=== PATIENT | female | born 1995 | race Caucasian/White ===

== ENCOUNTER → 2019-03-06 | Day surgery (SDC) | payer BC ==
[~2019-03-06] MED LIST: BUPIVACAINE 0.25% 30ML SDV INJ ONE; DEXAMETHASONE SOD PHOS INJ 4 MG/ML VIAL ONE; FENTANYL CITRATE/PF 100MCG/2 ML INJ ONE; GLYCOPYRROLATE INJ 1MG/ 5 ML SYR ONE; IBUPROFEN 800MG/ 250ML 250 ML IV ONE; LIDOCAINE HCL 2% LOCAL INJ 5 ML SDV VIAL INJ ONE; MIDAZOLAM HCL 2 MG/2 ML VIAL ONE; NEOSTIGMINE 5 MG/5ML SYR ONE; ONDANSETRON HCL INJ 2MG/ML 2ML 2 MG/ML VIAL ONE; PROPOFOL IV EMULSION 10 MG/ML 20 ML VIAL ONE; ROCURONIUM BROMIDE 10 MG/ML 5ML VIAL ONE; SEVOFLURANE INHAL SOLN 250 ML PEN BTL ONE
[2019-03-06 09:05] VITALS: BP 121/73
--- NOTE | 2019-03-06 13:14 | Operative Report ---
DATE OF PROCEDURE: 03/06/2019 SURGEON: Markus Badillo MD PREOPERATIVE DIAGNOSES: Chronic adenotonsillitis, tonsilliths. POSTOPERATIVE DIAGNOSES: Chronic adenotonsillitis, tonsilliths. PROCEDURE: Tonsillectomy and adenoidectomy. SIGNIFICANT FINDINGS: Scarred tonsils bilaterally. Adenoids were mildly to moderately enlarged. There appeared to be dark-appearing soft tissue in the deep aspect of the left tonsil. PUPPY SITTER: None. ANESTHESIA: General endotracheal tube anesthesia. SPECIMENS REMOVED: Tonsils (adenoids were coblated). ESTIMATED BLOOD LOSS: Less than 1 mL. COMPLICATIONS: None. INDICATIONS: The patient is a 23-year-old white female with 2 years history of throat pain and tonsilliths. She has been refractory to conservative tonsillith measures. The tonsilliths bother the patient significantly. She is a nonsmoker. She has had no previous throat or neck surgery. On examination, her tonsils are 2+/2+ and cryptic. She is scheduled for tonsillectomy and adenoidectomy for the treatment of chronic adenotonsillitis and tonsilliths. Risks and complications of the procedures were thoroughly discussed with the patient and include infection, bleeding, scarring, failure to improve, need for additional operations, persistent collection of tonsilliths, damage to teeth, gums, tongue, and lips, chronic throat pain, inability to taste, numbness of the tongue, leakage of fluid through the nose when drinking liquids, scarring of the pharynx resulting in permanent worse nasal obstruction, need for blood transfusions, damage to surrounding nerves, blood vessels and muscles. She fully understands and gives consent. DESCRIPTION OF PROCEDURE: The patient was taken to the operating room and placed supine on the operating table where general anesthesia was achieved through orotracheal intubation. Eyes were taped. Shoulder roll was placed. Head and body were draped. Table was turned 90 degrees with the head towards the surgeon. Decadron was administered. A Fredis-Julian mouth gag was inserted without difficulty and placed into suspension on the Maldonado stand. There was no evidence of bifid uvula, diastasis of the muscular uvula or a notched hard palate. Red rubber catheters were then inserted into the nose and brought out through the mouth to retract the soft palate. Examination of the nasopharynx revealed the adenoids to be mildly to moderately hypertrophied. The left tonsil was grasped with a tonsillar Allis clamp and was removed with the ArthroCare coblator on a setting of 6 on cut mode taking care to stay on the capsule of the tonsil. There appeared to be some black tissue on the deep aspect on the left tonsil. The right tonsil was removed in the same way. Hemostasis was obtained with the Coblator on a setting of 3 on coag mode on both tonsillar beds. The adenoids were then removed with the ArthroCare coblator on a setting of eight on cut mode taking care to avoid trauma to the torus tubarius bilaterally. Hemostasis was obtained with the Coblator on a setting of 3 on coag mode. Injection with 3 mL of 0.25% plain Marcaine was injected into the free edges of the anterior and posterior tonsillar pillars. Thorough irrigation was performed. Stomach contents were suctioned with an NG tube. The red rubber catheters and Fredis-Julian mouth gag were then removed without difficulty revealing no trauma to the teeth, gums, tongue, and lips. The patient was awakened in the operating room, extubated, and taken to the recovery room in good condition. MD Zehra CamachoKY/MAYI /[id number] MTDShonna
== END | disposition home or self-care (01) ==
LOC: OR 05:13
PROVIDERS: ATTEND Otolaryngology
DX: J35.03 Chronic tonsillitis and adenoiditis (principal); F41.9 Anxiety disorder, unspecified; Z88.1 Allergy status to other antibiotic agents
CPT/HCPCS: 42821; 81025; 88304; J1100; J2001; J2250; J2405; J2704; J3010; J3490

== ENCOUNTER 2019-03-12 01:41 | Observation (INO) | payer BC ==
[2019-03-12] VITALS (9 sets, daily range): BP systolic 120–133; BP diastolic 77–90
[~2019-03-12] VITALS: Ht 167.6 cm; Wt 63.5 kg
[2019-03-12 02:03] LABS: BASOPHILS # (AUTO) 0.1 (0.0-0.1); BASOPHILS % 0.4 % (0.0-1.0); EOSINOPHILS # (AUTO) 0.1 (0.0-0.4); EOSINOPHILS % 0.8 % (0.0-6.0); HEMOGLOBIN 12.9 g/dL (12.0-16.0); LYMPHOCYTES # (AUTO) 1.8 (1.0-3.2); MEAN CORPUSCULAR HEMOGLOBIN 29.3 pg (28-32); MEAN CORPUSCULAR HGB CONC 33.9 g/dL (31-35); MEAN CORPUSCULAR VOLUME 86.2 fL (81-99); MONOCYTES # (AUTO) 0.9 (0.2-0.8); NEUTROPHILS # (AUTO) 9.4 (2.1-6.9); NEUTROPHILS % 76.5 % (38.7-80.0); PLATELET COUNT 286 x10e3/uL (140-360); RED BLOOD COUNT 4.41 x10e6/uL (3.6-5.1); RED CELL DISTRIBUTION WIDTH 11.8 % (11.7-14.4)
--- NOTE | 2019-03-12 02:15 | NUR ---
PT HYPOTENSIVE, ER MD TO BS; NEW ORDER RECEIVED; PT REMAINS AAOX3, RESP ARE EVEN AND UNLABORED, O2 SAT RA 100%; PT REPORTS HAS NOT CONSUMED FLUIDS SINCE SX
[2019-03-12] MEDS ORDERED: SODIUM CHLORIDE 0.9% 1000ML 1,000 ML ONE (02:22)
[2019-03-12 02:29] LABS: ALANINE AMINOTRANSFERASE 14 IU/L (0-55); ALBUMIN 3.6 g/dL (3.5-5.0); ALKALINE PHOSPHATASE 65 IU/L (40-150); ANION GAP 13.6 mmol/L (8-16); BLOOD UREA NITROGEN 9 mg/dL (7-26); BUN/CREATININE RATIO 11 (6-25); CALCIUM 9.6 mg/dL (8.4-10.2); CARBON DIOXIDE 23 mmol/L (22-29); CHLORIDE 102 mmol/L (98-107); CREATININE, SERUM 0.84 mg/dL (0.57-1.11); EST GLOMERULAR FILTRATION RATE > 60 ML/MIN (60-); GLUCOSE 124 mg/dL (74-118); POTASSIUM 3.6 mmol/L (3.5-5.1); SODIUM 135 mmol/L (136-145)
[2019-03-12] MEDS ORDERED: SODIUM CHLORIDE 0.9% 1000ML 1,000 ML IV ONE ×2 (02:30→03:00)
[2019-03-12 02:32] LABS: INR 1.11; PROTHROMBIN TIME 14.8 seconds (11.9-14.5)
[2019-03-12 02:33] LABS: PARTIAL THROMBOPLASTIN TIME 28.9 seconds (23.8-35.5)
[2019-03-12] MEDS ORDERED: SODIUM CHLORIDE 0.9% 1000ML 1,000 ML IV SCH (02:57)
[2019-03-12] MEDS ORDERED: ONDANSETRON HCL INJ 2MG/ML 2ML 2 MG/ML VIAL IV PRN (03:00)
--- NOTE | 2019-03-12 06:58 | NUR ---
Received patient lying in bed with eyes open, family member at bedside. Respiration even and unlabored without SOB. Patient is NPO at this time. Call light in reach.
[2019-03-12] MEDS ORDERED: D5.45%NS/KCL 20MEQ 1,000 ML IV SCH (08:00)
[2019-03-12] MEDS ORDERED: ACETAMINOPHEN 325 MG TAB PO PRN (08:15)
[2019-03-12 08:47] LABS: BASOPHILS % 0.4 % (0.0-1.0); EOSINOPHILS % 0.2 % (0.0-6.0); HEMATOCRIT 32.8 % (34.2-44.1); HEMOGLOBIN 10.9 g/dL (12.0-16.0); LYMPHOCYTES # (AUTO) 1.2 (1.0-3.2); LYMPHOCYTES % 12.8 % (18.0-39.1); MEAN CORPUSCULAR HEMOGLOBIN 28.8 pg (28-32); MEAN CORPUSCULAR HGB CONC 33.2 g/dL (31-35); MEAN CORPUSCULAR VOLUME 86.8 fL (81-99); MONOCYTES # (AUTO) 0.7 (0.2-0.8); MONOCYTES % 7.5 % (4.4-11.3); NEUTROPHILS # (AUTO) 7.3 (2.1-6.9); NEUTROPHILS % 78.6 % (38.7-80.0); PLATELET COUNT 258 x10e3/uL (140-360); RED BLOOD COUNT 3.78 x10e6/uL (3.6-5.1); RED CELL DISTRIBUTION WIDTH 11.9 % (11.7-14.4)
--- NOTE | 2019-03-12 08:50 | NUR ---
Spoke with Dr. Markus Badillo. States " okay to give Tylenol elixer for pain ".
[2019-03-12] MEDS: ACETAMINOPHEN 325 MG/10 ML UDC PO PRN ×2 (09:09→17:28)
[2019-03-12 11:56] LABS: BASOPHILS % 0.4 % (0.0-1.0); EOSINOPHILS % 0.5 % (0.0-6.0); HEMATOCRIT 32.6 % (34.2-44.1); LYMPHOCYTES # (AUTO) 1.4 (1.0-3.2); LYMPHOCYTES % 17.5 % (18.0-39.1); MEAN CORPUSCULAR HEMOGLOBIN 29.2 pg (28-32); MEAN CORPUSCULAR HGB CONC 33.7 g/dL (31-35); MEAN CORPUSCULAR VOLUME 86.5 fL (81-99); MONOCYTES # (AUTO) 0.8 (0.2-0.8); MONOCYTES % 9.1 % (4.4-11.3); NEUTROPHILS % 72.1 % (38.7-80.0); PLATELET COUNT 256 x10e3/uL (140-360); RED BLOOD COUNT 3.77 x10e6/uL (3.6-5.1); RED CELL DISTRIBUTION WIDTH 11.9 % (11.7-14.4)
[2019-03-12 12:13] LABS: ANION GAP 10.2 mmol/L (8-16); BLOOD UREA NITROGEN 11 mg/dL (7-26); BUN/CREATININE RATIO 16 (6-25); CALCIUM 8.7 mg/dL (8.4-10.2); CARBON DIOXIDE 25 mmol/L (22-29); CHLORIDE 108 mmol/L (98-107); EST GLOMERULAR FILTRATION RATE > 60 ML/MIN (60-); GLUCOSE 92 mg/dL (74-118); POTASSIUM 4.2 mmol/L (3.5-5.1); SODIUM 139 mmol/L (136-145)
--- NOTE | 2019-03-12 12:30 | NUR ---
Spoke with Dr. Badillo and notified about the CBC result. States to advance diet to clear liquid and if patient is doing well, will D/C in the morning.
--- NOTE | 2019-03-12 13:46 | History and Physical ---
CHIEF COMPLAINT: Throat bleeding. HISTORY OF PRESENT ILLNESS: The patient is a 23-year-old white female, who experienced bleeding from her throat at 8 o'clock in the morning on 03/11/2019. She then bled again at midnight in the evening of 03/11/2019. The patient underwent tonsillectomy and adenoidectomy on March 06, 2019 for the treatment of chronic adenotonsillitis and tonsilliths. The patient did well until 03/11/2019. The patient presented to the emergency room tracer powder blender of 03/12/2019. CBC at that time revealed hemoglobin of 12.9, hematocrit of 38.0, platelet count of 286,000 with a white blood cell count of 12.28. The patient states that her pain has been in good control with just plain Tylenol. The patient was admitted for observation. She has had no bleeding since midnight. PAST MEDICAL HISTORY: None. PAST SURGICAL HISTORY: Tonsillectomy and adenoidectomy, excision of axillary mole. ALLERGIES: SHE HAS NO KNOWN DRUG ALLERGIES. MEDICATIONS: Tylenol. SOCIAL HISTORY: She is a nonsmoker and a seldom drinker. PHYSICAL EXAMINATION: VITAL SIGNS: Blood pressure 131/84, temperature 99.0, heart rate of 86, respirations 20, and she is 99% oxygen saturation. GENERAL: The patient is a young white female, appearing of stated age, in no apparent distress with no active throat bleeding. HEENT: Ears appear normal. Face is symmetric. Nasal exam is clear. Oral cavity, oropharynx reveals no active bleeding or any old blood. The tonsillar beds are healing appropriately for someone who underwent tonsillectomy and adenoidectomy 6 days ago. NECK: Supple with full range of motion. There is no cervical lymphadenopathy. ASSESSMENT: Post tonsillectomy hemorrhage, throat pain, and dehydration. PLAN: Observation for any further bleeding in the event that she may need operative control of throat hemorrhage. IV fluid hydration, pain control. Keep n.p.o. in the event that she may need operative control of post- tonsillectomy hemorrhage. Ice water gargles as needed for bleeding while preparing for operative control of post-tonsillectomy hemorrhage. Recheck CBC in 5 hours. Markus Badillo MD JKY/MAYI /[id number] PAM
--- NOTE | 2019-03-12 19:13 | NUR ---
Report given to clerical office. Respiration even and unlabored without SOB. Call light in reach.
[2019-03-13 04:45] VITALS: BP 116/78
[2019-03-13] MEDS: ACETAMINOPHEN 325 MG/10 ML UDC PO PRN (04:51)
[2019-03-13 07:56] VITALS: BP 125/76
[2019-03-13 10:01] VITALS: BP 125/76
--- NOTE | 2019-03-14 03:50 | Discharge Summary ---
CHIEF COMPLAINT: Throat bleeding. HISTORY OF PRESENT ILLNESS: The patient is a 23-year-old white female who experienced bleeding from her throat at 8 o'clock in the morning on 03/11/2019. She then bled again at midnight in the evening of 03/11/2019. The patient is status post tonsillectomy and adenoidectomy on March 06, 2019 for the treatment of chronic adenotonsillitis and tonsilliths. The patient did well until 03/11/2019. The patient presented to the emergency room card player of 03/12/2019. CBC at that time revealed hemoglobin of 12.9 and hematocrit of 38.0. The patient states that her pain was in good control with Tylenol. The patient did not bleed after midnight of 03/11/2019. PAST MEDICAL HISTORY: None. PAST SURGICAL HISTORY: Tonsillectomy and adenoidectomy on March 06, 2019, excision of axillary mole. ALLERGIES: NO KNOWN DRUG ALLERGIES. MEDICATIONS: Tylenol. SOCIAL HISTORY: She is a nonsmoker, seldom drinker. PHYSICAL EXAMINATION: VITAL SIGNS: Revealed stable vital signs. Blood pressure 131/84, temperature 99.0, heart rate 86, and respirations 20 and 99% oxygen saturation. GENERAL: The patient is a young white female appearing of stated age, in no apparent distress with no active throat bleeding. HEENT: Ears appeared normal. Face was symmetric. Nasal exam was clear. Oral cavity, oropharynx revealed no active bleeding or any old blood. The tonsillar beds were healing appropriately for someone who underwent tonsillectomy and adenoidectomy on March 06, 2019. NECK: Supple with full range of motion with no cervical lymphadenopathy palpable. HOSPITAL COURSE: The patient was admitted in the morning of 03/12/2019 for observation. The patient was kept n.p.o., but because she did not bleed, was allowed to proceed to clear liquid diet at dinner time on 03/12/2019. Her pain was controlled with Tylenol. She was treated with IV fluid hydration with D5 half-normal saline plus 20 mEq of potassium chloride per Liter at 125 mL/h. This was hep-locked in the evening of 03/12/2019. The patient did well with no evidence of any bleeding during this observation period. Patient was tolerating clear liquid diet well. DISCHARGE INSTRUCTIONS: Activity: No heavy activity. Keep head of bed elevated 45 degrees. Follow up: The patient is to follow up with Dr. Badillo as needed. Diet: Soft for one more week and then proceed to regular diet. Medications: Tylenol for pain control. Markus Badillo MD JKY/MAYI /[id number] MTDD
== END 2019-03-13 11:30 | disposition home or self-care (01) ==
LOC: ER 01:41 → ERHOLD 02:59 → IMCU 04:02
PROVIDERS: ADMIT Otolaryngology; ATTEND Otolaryngology
DX: K91.840 Postprocedural hemorrhage of a digestive system organ or structure following a digestive system procedure (principal); R04.1 Hemorrhage from throat; E86.0 Dehydration
CPT/HCPCS: 36415; 80048; 80053; 84702; 85025; 85610; 85730; 86850; 86900; 99284; G0378 ×2; J7030